=== PATIENT | male | born 1945 | race Caucasian/White ===

== ENCOUNTER 2020-02-07 09:27 | Outpatient (CLI) | payer MEDICARE ==
[2020-02-07] VITALS (21 sets, daily range): BP systolic 83–110; BP diastolic 45–71
== END 2020-02-07 23:59 | disposition home or self-care (01) ==
LOC: CARD DIAG 09:27
PROVIDERS: ATTEND Internal Medicine Cardiovascular Disease
DX: R55 Syncope and collapse (principal)
CPT/HCPCS: 93660